=== PATIENT | male | born 1955 | race Caucasian/White ===

== ENCOUNTER 2018-05-04 19:27 | Inpatient (IN) | payer MEDICARE ==
[~2018-05-04] VITALS: Ht 182.9 cm; Wt 69.9 kg
[~2018-05-04 19:27] MED LIST: ALPR0.5T8 PO; BUPR-93 PO; DIVA500T52 PO; DOCU250C28 PO; LEVO100 PO; NITR100C11 PO; PANT40TA25 PO; QUET25TA PO; RIFAX550 PO; ZINC220 PO; ZOLP5 PO
[2018-05-04 20:11] LABS: BASOPHILS % (AUTO) 0.5 % (0.0-2.0); EOSINOPHILS % (AUTO) 0.4 % (1.0-6.0); HEMATOCRIT 37.7 % (41-53); HEMOGLOBIN 13.1 g/dL (13.5-17.5); LYMPHOCYTES % (AUTO) 11.8 % (22.0-44.0); MEAN CORPUSCULAR HEMOGLOBIN 30.5 pg (26.0-34.0); MEAN CORPUSCULAR HGB CONC 34.8 G/dL (31.0-37.0); MEAN CORPUSCULAR VOLUME 88 fL (80-100); MONOCYTES # (AUTO) 0.6 K/uL (0.1-1.0); MONOCYTES % (AUTO) 7.6 % (2.0-9.0); NEUTROPHILS # (AUTO) 6.8 K/uL (1.8-7.7); NEUTROPHILS % (AUTO) 79.7 % (40.0-70.0); PLATELET COUNT (AUTO) 196 K/uL (150-450); RED CELL DISTRIBUTION WIDTH 13.4 % (11.5-14.5)
[2018-05-04 20:25] LABS: PROTHROMBIN TIME 10.2 SEC (9.4-11.6)
[2018-05-04 20:36] LABS: ANION GAP 9 mmol/L (8-16); CALCIUM, TOTAL 8.1 mg/dL (8.8-10.5); CARBON DIOXIDE 24 mmol/L (22-29); CHLORIDE 98 mmol/L (98-107); CREATININE 0.58 mg/dL (0.60-1.30); GLOMERULAR FILTR. RATE CALC > 60 mL/min (>60); GLUCOSE,RANDOM 186 mg/dL (70-110); POTASSIUM 4.5 mmol/L (3.5-5.1); SODIUM SERUM 131 mmol/L (136-145); UREA NITROGEN, BLOOD 15 mg/dL (7-18)
[2018-05-04] MEDS ORDERED: LORazepam 2 MG/ML VIAL IVP ONE (20:45)
[2018-05-04 20:53] LABS: ALANINE AMINOTRANSFERASE 21 U/L (12-78); ALKALINE PHOSPHATASE 94 U/L (46-116); ASPARTATE AMINOTRANSFERASE 13 U/L (15-37); BILIRUBIN,TOTAL 0.3 mg/dL (0.1-1.0); CREATINE KINASE, TOTAL ONLY 22 U/L (39-308); LIPASE 118 U/L (73-393); TOTAL PROTEIN, SERUM 7.2 g/dL (6.4-8.2)
[2018-05-04] MEDS ORDERED: PB/HYOSCY/ATR/SCOP/LIDO/MAALOX 55 ML BOTTLE PO ONE (22:00)
[2018-05-04] MEDS ORDERED: ONDANSETRON HCL 4 MG/2 ML VIAL IVP PRN (22:30)
[2018-05-04] MEDS ORDERED: ACETAMINOPHEN 325 MG TABLET PO PRN (22:30)
[2018-05-04] MEDS ORDERED: SODIUM CHLORIDE 0.9% 1,000 ML IV ONE (22:30)
[2018-05-04] MEDS ORDERED: 0.9% SODIUM CHLORIDE 10 ML SYRINGE IVP PRN (22:30)
[2018-05-05] VITALS (7 sets, daily range): BP systolic 91–121; BP diastolic 50–84
[2018-05-05] MEDS ORDERED: MAGNESIUM HYDROXIDE SUSPENSION 30 ML UDCUP PO PRN (00:15)
[2018-05-05] MEDS ORDERED: ACETAMINOPHEN 325 MG TABLET PO PRN (00:15)
[2018-05-05] MEDS ORDERED: ZOLPIDEM TARTRATE 5 MG TABLET PO PRN ×2 (00:15)
[2018-05-05] MEDS ORDERED: ALBUTEROL SULFATE 2.5 MG/0.5 ML NEB SOLUTION NEB PRN (00:15)
[2018-05-05] MEDS ORDERED: ONDANSETRON HCL 4 MG/2 ML VIAL IVP PRN (00:15)
[2018-05-05] MEDS ORDERED: OxyCODONE HCL/ACETAMINOPHEN 5-325 MG TABLET PO PRN (00:15)
[2018-05-05] MEDS ORDERED: MORPHINE SULFATE 4 MG/ML SYRINGE IVP PRN (00:15)
[2018-05-05] MEDS ORDERED: BISACODYL 10 MG RECTAL RECTAL SUPPOSITORY PR PRN (00:15)
[2018-05-05] MEDS ORDERED: IPRATROPIUM BROMIDE 0.5 MG/2.5 ML NEB SOLUTION NEB PRN (00:15)
[2018-05-05] MEDS: DEXTROSE 5%-0.45% SODIUM CHL 1,000 ML IV SCH ×3 (04:14→17:11)
[2018-05-05] MEDS: LEVOTHYROXINE SODIUM 100 MCG TABLET PO SCH (06:09)
[2018-05-05 06:39] LABS: BASOPHILS % (AUTO) 0.1 % (0.0-2.0); EOSINOPHILS % (AUTO) 0.8 % (1.0-6.0); HEMATOCRIT 35.9 % (41-53); HEMOGLOBIN 12.5 g/dL (13.5-17.5); LYMPHOCYTES # (AUTO) 1.3 K/uL (1.0-4.8); LYMPHOCYTES % (AUTO) 16.6 % (22.0-44.0); MEAN CORPUSCULAR HEMOGLOBIN 30.7 pg (26.0-34.0); MEAN CORPUSCULAR HGB CONC 34.8 G/dL (31.0-37.0); MEAN CORPUSCULAR VOLUME 88 fL (80-100); MONOCYTES # (AUTO) 0.7 K/uL (0.1-1.0); MONOCYTES % (AUTO) 8.5 % (2.0-9.0); NEUTROPHILS # (AUTO) 5.9 K/uL (1.8-7.7); PLATELET COUNT (AUTO) 178 K/uL (150-450); RED BLOOD CELL COUNT(AUTO) 4.06 MIL/uL (4.50-5.90); RED CELL DISTRIBUTION WIDTH 13.7 % (11.5-14.5)
[2018-05-05 07:07] LABS: ALANINE AMINOTRANSFERASE 44 U/L (12-78); ALBUMIN 2.4 g/dL (3.4-5.0); ALKALINE PHOSPHATASE 83 U/L (46-116); ANION GAP 8 mmol/L (8-16); ASPARTATE AMINOTRANSFERASE 40 U/L (15-37); BILIRUBIN,TOTAL 0.3 mg/dL (0.1-1.0); CALCIUM, TOTAL 7.6 mg/dL (8.8-10.5); CARBON DIOXIDE 23 mmol/L (22-29); CHLORIDE 101 mmol/L (98-107); CREATININE 0.48 mg/dL (0.60-1.30); GLOMERULAR FILTR. RATE CALC > 60 mL/min (>60); GLUCOSE,RANDOM 152 mg/dL (70-110); POTASSIUM 3.9 mmol/L (3.5-5.1); SODIUM SERUM 132 mmol/L (136-145); TOTAL PROTEIN, SERUM 6.1 g/dL (6.4-8.2); UREA NITROGEN, BLOOD 13 mg/dL (7-18)
[2018-05-05] MEDS: BuPROPion HCL XL 150 MG ER TABLET PO SCH (09:18)
[2018-05-05] MEDS: RIFAXIMIN 550 MG TABLET PO SCH (09:18)
[2018-05-05] MEDS: DIVALPROEX SODIUM 500 MG ER TABLET PO SCH (09:18)
[2018-05-05] MEDS: ZINC SULFATE 220 MG CAPSULE PO SCH (09:18)
[2018-05-05] MEDS: ALPRAZolam 0.5 MG TABLET PO SCH (09:19)
[2018-05-05] MEDS: QUEtiapine FUMARATE 25 MG TABLET PO SCH (09:19)
[2018-05-05] MEDS: HEPARIN SODIUM,PORCINE 5,000 UNITS/ML VIAL SQ SCH ×2 (09:21→20:32)
[2018-05-05] MEDS: DOCUSATE SODIUM 250 MG CAPSULE PO SCH ×2 (09:31→20:33)
[2018-05-05] MEDS: PANTOPRAZOLE SODIUM 40 MG/VIAL IVP SCH (09:32)
[2018-05-06] MEDS: LEVOTHYROXINE SODIUM 100 MCG TABLET PO SCH (05:36)
[2018-05-06 05:41] VITALS: BP 120/58
[2018-05-06 06:25] LABS: MAGNESIUM 1.6 mg/dL (1.80-2.40); PHOSPHORUS 3.5 mg/dL (2.5-4.9)
[2018-05-06 07:11] VITALS: BP 98/51
[2018-05-06] MEDS: HEPARIN SODIUM,PORCINE 5,000 UNITS/ML VIAL SQ SCH ×2 (08:31→20:23)
[2018-05-06] MEDS: ALPRAZolam 0.5 MG TABLET PO SCH (08:32)
[2018-05-06] MEDS: MULTIVITAMINS WITH MINERALS, THERAPEUTIC TABLET PO SCH (08:32)
[2018-05-06] MEDS: ZINC SULFATE 220 MG CAPSULE PO SCH (08:32)
[2018-05-06] MEDS: DIVALPROEX SODIUM 500 MG ER TABLET PO SCH (08:32)
[2018-05-06] MEDS: QUEtiapine FUMARATE 25 MG TABLET PO SCH (08:32)
[2018-05-06] MEDS: BuPROPion HCL XL 150 MG ER TABLET PO SCH (08:32)
[2018-05-06] MEDS: RIFAXIMIN 550 MG TABLET PO SCH (08:32)
[2018-05-06] MEDS: PANTOPRAZOLE SODIUM 40 MG/VIAL IVP SCH (08:32)
[2018-05-06] MEDS: DOCUSATE SODIUM 250 MG CAPSULE PO SCH ×2 (08:32→20:22)
[2018-05-06 11:07] VITALS: BP 97/62
[2018-05-06] MEDS ORDERED: MAGNESIUM SULFATE 4 GM/WATER 100 ML IV PRN (13:15)
[2018-05-06] MEDS ORDERED: MAGNESIUM SULFATE 2 GM/WATER 50 ML IV PRN (13:15)
[2018-05-06] MEDS: MAGNESIUM OXIDE 400 MG TABLET PO PRN ×2 (13:45→20:25)
[2018-05-06 15:17] VITALS: BP 102/59
[2018-05-06 20:02] VITALS: BP 124/82
[2018-05-06 23:46] VITALS: BP 112/72
[2018-05-07] MEDS: MAGNESIUM OXIDE 400 MG TABLET PO PRN ×4 (02:59→21:14)
[2018-05-07 04:00] VITALS: BP 114/86
[2018-05-07] MEDS: LEVOTHYROXINE SODIUM 100 MCG TABLET PO SCH (05:40)
[2018-05-07 06:17] LABS: BASOPHILS % (AUTO) 0.3 % (0.0-2.0); EOSINOPHILS % (AUTO) 2.6 % (1.0-6.0); HEMATOCRIT 31.5 % (41-53); HEMOGLOBIN 11.2 g/dL (13.5-17.5); LYMPHOCYTES # (AUTO) 1.4 K/uL (1.0-4.8); LYMPHOCYTES % (AUTO) 25.4 % (22.0-44.0); MEAN CORPUSCULAR HEMOGLOBIN 30.8 pg (26.0-34.0); MEAN CORPUSCULAR HGB CONC 35.4 G/dL (31.0-37.0); MEAN CORPUSCULAR VOLUME 87 fL (80-100); MONOCYTES # (AUTO) 0.5 K/uL (0.1-1.0); MONOCYTES % (AUTO) 9.6 % (2.0-9.0); NEUTROPHILS # (AUTO) 3.3 K/uL (1.8-7.7); NEUTROPHILS % (AUTO) 62.1 % (40.0-70.0); PLATELET COUNT (AUTO) 163 K/uL (150-450); RED BLOOD CELL COUNT(AUTO) 3.63 MIL/uL (4.50-5.90); RED CELL DISTRIBUTION WIDTH 13.8 % (11.5-14.5)
[2018-05-07 06:18] LABS: ANION GAP 4 mmol/L (8-16); CALCIUM, TOTAL 7.9 mg/dL (8.8-10.5); CARBON DIOXIDE 29 mmol/L (22-29); CHLORIDE 102 mmol/L (98-107); CREATININE 0.57 mg/dL (0.60-1.30); GLOMERULAR FILTR. RATE CALC > 60 mL/min (>60); GLUCOSE,RANDOM 90 mg/dL (70-110); SODIUM SERUM 135 mmol/L (136-145); UREA NITROGEN, BLOOD 2 mg/dL (7-18)
[2018-05-07 07:30] VITALS: BP 109/74
[2018-05-07] MEDS: PANTOPRAZOLE SODIUM 40 MG/VIAL IVP SCH (08:53)
[2018-05-07] MEDS: ALPRAZolam 0.5 MG TABLET PO SCH (08:53)
[2018-05-07] MEDS: DOCUSATE SODIUM 250 MG CAPSULE PO SCH ×2 (08:54→20:04)
[2018-05-07] MEDS: RIFAXIMIN 550 MG TABLET PO SCH (08:54)
[2018-05-07] MEDS: MULTIVITAMINS WITH MINERALS, THERAPEUTIC TABLET PO SCH (08:54)
[2018-05-07] MEDS: THIAMINE HCL 100 MG TABLET PO SCH (08:54)
[2018-05-07] MEDS: HEPARIN SODIUM,PORCINE 5,000 UNITS/ML VIAL SQ SCH ×2 (08:54→20:04)
[2018-05-07] MEDS: BuPROPion HCL XL 150 MG ER TABLET PO SCH (08:54)
[2018-05-07] MEDS: QUEtiapine FUMARATE 25 MG TABLET PO SCH (08:54)
[2018-05-07] MEDS: DIVALPROEX SODIUM 500 MG ER TABLET PO SCH (08:54)
[2018-05-07] MEDS: ZINC SULFATE 220 MG CAPSULE PO SCH (08:54)
[2018-05-07] MEDS: DEXTROSE 5%-0.45% SODIUM CHL 1,000 ML IV SCH (08:56)
[2018-05-07] MEDS: POLYETHYLENE GLYCOL 3350 17 GM PACKET PO SCH (12:08)
[2018-05-07 12:15] VITALS: BP 104/64
[2018-05-07 15:15] VITALS: BP 131/98
[2018-05-07 19:16] VITALS: BP 124/74
[2018-05-07 23:24] VITALS: BP 96/71
[2018-05-08 04:30] VITALS: BP 113/66
[2018-05-08] MEDS: LEVOTHYROXINE SODIUM 100 MCG TABLET PO SCH (05:29)
[2018-05-08] MEDS: DEXTROSE 5%-0.45% SODIUM CHL 1,000 ML IV SCH (05:29)
[2018-05-08 06:41] LABS: BASOPHILS % (AUTO) 0.3 % (0.0-2.0); EOSINOPHILS % (AUTO) 1.6 % (1.0-6.0); HEMATOCRIT 33.1 % (41-53); HEMOGLOBIN 11.7 g/dL (13.5-17.5); LYMPHOCYTES # (AUTO) 1.5 K/uL (1.0-4.8); MEAN CORPUSCULAR HEMOGLOBIN 31.4 pg (26.0-34.0); MEAN CORPUSCULAR HGB CONC 35.3 G/dL (31.0-37.0); MEAN CORPUSCULAR VOLUME 89 fL (80-100); MONOCYTES # (AUTO) 0.6 K/uL (0.1-1.0); MONOCYTES % (AUTO) 9.8 % (2.0-9.0); NEUTROPHILS # (AUTO) 3.8 K/uL (1.8-7.7); NEUTROPHILS % (AUTO) 63.3 % (40.0-70.0); PLATELET COUNT (AUTO) 183 K/uL (150-450); RED BLOOD CELL COUNT(AUTO) 3.72 MIL/uL (4.50-5.90); RED CELL DISTRIBUTION WIDTH 14.2 % (11.5-14.5)
[2018-05-08 06:48] LABS: ANION GAP 3 mmol/L (8-16); CALCIUM, TOTAL 8.1 mg/dL (8.8-10.5); CARBON DIOXIDE 30 mmol/L (22-29); CHLORIDE 100 mmol/L (98-107); CREATININE 0.67 mg/dL (0.60-1.30); GLOMERULAR FILTR. RATE CALC > 60 mL/min (>60); GLUCOSE,RANDOM 93 mg/dL (70-110); POTASSIUM 4.5 mmol/L (3.5-5.1); SODIUM SERUM 133 mmol/L (136-145); UREA NITROGEN, BLOOD 1 mg/dL (7-18)
[2018-05-08 07:56] VITALS: BP 117/72
[2018-05-08] MEDS: MULTIVITAMINS WITH MINERALS, THERAPEUTIC TABLET PO SCH (08:21)
[2018-05-08] MEDS: DOCUSATE SODIUM 250 MG CAPSULE PO SCH ×2 (08:21→20:35)
[2018-05-08] MEDS: POLYETHYLENE GLYCOL 3350 17 GM PACKET PO SCH (08:21)
[2018-05-08] MEDS: PANTOPRAZOLE SODIUM 40 MG/VIAL IVP SCH (08:21)
[2018-05-08] MEDS: DIVALPROEX SODIUM 500 MG ER TABLET PO SCH (08:21)
[2018-05-08] MEDS: THIAMINE HCL 100 MG TABLET PO SCH (08:22)
[2018-05-08] MEDS: ZINC SULFATE 220 MG CAPSULE PO SCH (08:22)
[2018-05-08] MEDS: HEPARIN SODIUM,PORCINE 5,000 UNITS/ML VIAL SQ SCH ×2 (08:22→20:34)
[2018-05-08] MEDS: ALPRAZolam 0.5 MG TABLET PO SCH (08:22)
[2018-05-08] MEDS: RIFAXIMIN 550 MG TABLET PO SCH (08:22)
[2018-05-08] MEDS: BuPROPion HCL XL 150 MG ER TABLET PO SCH (08:22)
[2018-05-08] MEDS: QUEtiapine FUMARATE 25 MG TABLET PO SCH (08:22)
[2018-05-08 12:06] VITALS: BP 114/63
[2018-05-08 15:37] VITALS: BP 119/61
[2018-05-08] MEDS: LACTULOSE 20 GM/30 ML SOLUTION UDCUP PO SCH ×2 (16:12→20:34)
[2018-05-08 19:49] VITALS: BP 145/67
[2018-05-08 23:50] VITALS: BP 112/78
[2018-05-09] MEDS: DEXTROSE 5%-0.45% SODIUM CHL 1,000 ML IV SCH (03:00)
[2018-05-09 04:47] VITALS: BP 120/81
[2018-05-09] MEDS: LEVOTHYROXINE SODIUM 100 MCG TABLET PO SCH (06:35)
[2018-05-09 07:07] LABS: BASOPHILS % (AUTO) 0.4 % (0.0-2.0); EOSINOPHILS % (AUTO) 1.8 % (1.0-6.0); HEMOGLOBIN 11.8 g/dL (13.5-17.5); LYMPHOCYTES # (AUTO) 1.6 K/uL (1.0-4.8); LYMPHOCYTES % (AUTO) 32.1 % (22.0-44.0); MEAN CORPUSCULAR HGB CONC 34.7 G/dL (31.0-37.0); MEAN CORPUSCULAR VOLUME 90 fL (80-100); MONOCYTES # (AUTO) 0.4 K/uL (0.1-1.0); MONOCYTES % (AUTO) 8.8 % (2.0-9.0); NEUTROPHILS # (AUTO) 2.9 K/uL (1.8-7.7); NEUTROPHILS % (AUTO) 56.9 % (40.0-70.0); PLATELET COUNT (AUTO) 191 K/uL (150-450); RED CELL DISTRIBUTION WIDTH 14.3 % (11.5-14.5)
[2018-05-09 07:18] LABS: ANION GAP 6 mmol/L (8-16); CALCIUM, TOTAL 8.2 mg/dL (8.8-10.5); CARBON DIOXIDE 28 mmol/L (22-29); CHLORIDE 100 mmol/L (98-107); CREATININE 0.66 mg/dL (0.60-1.30); GLOMERULAR FILTR. RATE CALC > 60 mL/min (>60); GLUCOSE,RANDOM 94 mg/dL (70-110); POTASSIUM 4.6 mmol/L (3.5-5.1); SODIUM SERUM 134 mmol/L (136-145); UREA NITROGEN, BLOOD 2 mg/dL (7-18)
[2018-05-09 07:35] VITALS: BP 137/79
[2018-05-09] MEDS: HEPARIN SODIUM,PORCINE 5,000 UNITS/ML VIAL SQ SCH (09:24)
[2018-05-09] MEDS: LACTULOSE 20 GM/30 ML SOLUTION UDCUP PO SCH (09:24)
[2018-05-09] MEDS: MULTIVITAMINS WITH MINERALS, THERAPEUTIC TABLET PO SCH (09:25)
[2018-05-09] MEDS: ZINC SULFATE 220 MG CAPSULE PO SCH (09:25)
[2018-05-09] MEDS: DOCUSATE SODIUM 250 MG CAPSULE PO SCH (09:25)
[2018-05-09] MEDS: POLYETHYLENE GLYCOL 3350 17 GM PACKET PO SCH (09:25)
[2018-05-09] MEDS: PANTOPRAZOLE SODIUM 40 MG/VIAL IVP SCH (09:25)
[2018-05-09] MEDS: THIAMINE HCL 100 MG TABLET PO SCH (09:25)
[2018-05-09] MEDS: DIVALPROEX SODIUM 500 MG ER TABLET PO SCH (09:25)
[2018-05-09] MEDS: ALPRAZolam 0.5 MG TABLET PO SCH (09:26)
[2018-05-09] MEDS: QUEtiapine FUMARATE 25 MG TABLET PO SCH (09:26)
[2018-05-09] MEDS: BuPROPion HCL XL 150 MG ER TABLET PO SCH (09:26)
[2018-05-09] MEDS: RIFAXIMIN 550 MG TABLET PO SCH (09:26)
[2018-05-09 11:42] VITALS: BP 128/80
[2018-05-09 15:03] VITALS: BP 138/78
[2018-05-09] MEDS ORDERED: LACT30L PO (18:35)
[2018-05-09] MEDS ORDERED: MIRALAX PO (18:41)
== END 2018-05-09 19:16 | disposition home or self-care (01) | DRG 389 ==
LOC: EMS 19:33 → 4E 22:38 → 6N 05-08 14:17
PROVIDERS: ADMIT Internal Medicine; ATTEND Internal Medicine
DX: K56.7 Ileus, unspecified (principal); G82.20 Paraplegia, unspecified; E87.1 Hypo-osmolality and hyponatremia; G40.909 Epilepsy, unspecified, not intractable, without status epilepticus; I10 Essential (primary) hypertension; L89.90 Pressure ulcer of unspecified site, unspecified stage; E03.9 Hypothyroidism, unspecified; E78.5 Hyperlipidemia, unspecified; E86.0 Dehydration; F03.90 Unspecified dementia, unspecified severity, without behavioral disturbance, psychotic disturbance, mood disturbance, and anxiety; F20.9 Schizophrenia, unspecified; F41.9 Anxiety disorder, unspecified; J84.10 Pulmonary fibrosis, unspecified; K40.20 Bilateral inguinal hernia, without obstruction or gangrene, not specified as recurrent; N31.9 Neuromuscular dysfunction of bladder, unspecified; Z86.61 Personal history of infections of the central nervous system; Z93.3 Colostomy status; Z90.49 Acquired absence of other specified parts of digestive tract; Z79.899 Other long term (current) drug therapy; Z86.718 Personal history of other venous thrombosis and embolism
CPT/HCPCS: 74018; 74019; 74176; 83735; 84100; 87081; 96374; C9113; G0378; J1644; J2060